=== PATIENT | female | born 1960 | race American Indian/Alaskan Native ===

== ENCOUNTER 2016-11-16 09:19 | Emergency (ER) | payer OTHER, MEDICARE ==
[2016-11-16 10:11] VITALS: BP 130/93
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
== END 2016-11-16 12:25 | disposition home or self-care (01) ==
LOC: ED 09:19
DX: M79.1 Myalgia (principal); M54.6 Pain in thoracic spine; M25.512 Pain in left shoulder; I10 Essential (primary) hypertension; Z72.0 Tobacco use; Z98.890 Other specified postprocedural states; V89.2XXA Person injured in unspecified motor-vehicle accident, traffic, initial encounter; Y93.9 Activity, unspecified; Y99.9 Unspecified external cause status; Y92.410 Unspecified street and highway as the place of occurrence of the external cause
CPT/HCPCS: 99282

== ENCOUNTER 2020-08-10 18:33 | Emergency (ER) | payer MEDICARE ==
[2020-08-10 18:52] VITALS: BP 109/72
[2020-08-10 19:53] LABS: Basophils % (Auto) 0.8 % (0.0-1.8); Eosinophils # (Auto) 0.1 K/mm3 (0.0-0.4); Eosinophils % (Auto) 1.2 % (0.0-4.3); Hematocrit 35.4 % (30.3-42.9); Hemoglobin 11.9 gm/dl (10.1-14.3); Lymphocytes # (Auto) 2.5 K/mm3 (1.2-5.4); Lymphocytes % (Auto) 52.5 % (13.4-35.0); Mean Corpuscular HGB Conc 34 % (30-34); Mean Corpuscular Volume 85 fl (79-97); Monocytes # (Auto) 0.4 K/mm3 (0.0-0.8); Monocytes % (Auto) 8.3 % (0.0-7.3); Platelet Count 188 K/mm3 (140-440); Red Blood Count 4.15 M/mm3 (3.65-5.03); Red Cell Distribution Width 14.4 % (13.2-15.2)
[2020-08-10] MEDS ORDERED: ACETAMINOPHEN 325 MG TAB ONE (20:00)
[2020-08-10] MEDS ORDERED: ACETAMINOPHEN 325 MG TAB PO ONE (20:01)
[2020-08-10 20:08] LABS: Alanine Aminotransferase 10 units/L (7-56); Albumin 4.2 g/dL (3.9-5); Blood Urea Nitrogen 10 mg/dL (7-17); Calcium 9.4 mg/dL (8.4-10.2); Hemolysis Index 4
[2020-08-10 20:11] LABS: BUN/Creatinine Ratio 17
[2020-08-10 20:26] LABS: Bacteria,Urine 1+ /HPF (Negative); Bilirubin,Urine NEG (Negative); Blood,Urine NEG (Negative); Color,Urine Yellow (Yellow); Mucus,Urine FEW /HPF; Protein,Urine <15 mg/dL mg/dL (Negative); Urobilinogen,Urine < 2.0 mg/dL (<2.0)
--- NOTE | 2020-08-10 20:37 | XRay Report ---
PELVIS HISTORY: Pelvic pain 3 months COMPARISON: None. TECHNIQUE: AP radiograph(s) of the pelvis obtained. FINDINGS: Bones: No fracture or dislocation. Joint spaces: Maintained. Soft Tissues: No significant abnormality. Additional findings: Degenerative changes lower lumbar spine with fusion L5-S1 IMPRESSION: 1. No acute abnormality. Signer Name: Ty Cason MD Signed: 08/10/2020 8:33 PM Workstation Name: [id number]
--- NOTE | 2020-08-10 20:55 | Emergency Department Report ---
ED General Adult HPI - General Chief complaint: Urogenital-Female Stated complaint: VAGINAL PAIN Source: patient Mode of arrival: Ambulatory Limitations: No Limitations - History of Present Illness Initial comments: Patient is a 60 yo AA female with a h/o HTN and NIDDM as well as chronic osteoarthritis who presents to the ED with c/o acute onset persistent severe nontraumatic hip, pelvic and low back pain with hip pain for the last 5 days, worse with any movement or at rest. Patient states that she has been taklng OTC medications with no reliefe. Patient denies fall, traumatic injury, dysuria, hematuria, abdominal pain, dizziness, fever and chills, vaginal bleeding, heavy lifting and numbness and tingling of lower extremities bilaterally. MD Complaint: Pelvic pain, low back pain -: Sudden, days(s) (5) Location: pelvis Radiation: non-radiation Severity scale (0 -10): 10 Quality: aching, sharp Consistency: constant Improves with: none Associated Symptoms: denies other symptoms. denies: confusion, chest pain, cough, diaphoresis, headaches, loss of appetite, malaise, nausea/vomiting, seizure, shortness of breath, syncope, other Treatments Prior to Arrival: none - Related Data Home Medications Medication Instructions Recorded Confirmed Last Taken hydroCHLOROthiazide [Hctz] 25 mg PO QDAY 05/13/13 06/12/13 Unknown Cyclobenzaprine HCl 10 mg PO TID 06/12/13 06/12/13 Unknown [Cyclobenzaprine] Previous Rx's Medication Instructions Recorded Last Taken Type Ciprofloxacin HCl [Cipro] 500 mg PO BID #14 tablet 06/13/13 Unknown Rx Promethazine [Phenergan] 25 mg PO Q6H PRN #10 tablet 06/13/13 Unknown Rx metroNIDAZOLE [Flagyl] 500 mg PO Q8HR #14 tablet 06/13/13 Unknown Rx oxyCODONE /ACETAMINOPHEN [Percocet 1 tab PO Q6HR PRN #10 tablet 06/13/13 Unknown Rx 5/325 mg] Albuterol Mdi (or & Nicu Only) 2 puff IH QID PRN #1 inhalation 12/19/14 Unknown Rx [ProAir HFA Inhaler] Amoxicillin/K Clav Tab [Augmentin 1 tab PO Q12HR #20 tab 12/19/14 Unknown Rx 875MG TAB] Codeine Phosphate/Guaifenesin 10 ml PO QHS #70 ml 12/19/14 Unknown Rx [guaiFENesin-Codeine Syrup] methylPREDNISolone [Medrol Dose 4 mg PO QAM #1 pack 12/19/14 Unknown Rx Lacho] Cyclobenzaprine [Flexeril] 10 mg PO QHS PRN #24 tablet 11/16/16 Unknown Rx Naproxen [Naprosyn TAB] 500 mg PO BID #30 tablet 08/10/20 Unknown Rx predniSONE [Deltasone] 40 mg PO QDAY #10 tab 08/10/20 Unknown Rx traMADoL [Ultram] 50 mg PO Q6HR PRN #12 tablet 08/10/20 Unknown Rx Allergies Allergy/AdvReac Type Severity Reaction Status Date / Time No Known Allergies Allergy Verified 08/10/20 18:49 ED Review of Systems ROS: Stated complaint: VAGINAL PAIN Other details as noted in HPI Constitutional: denies: chills, fever Eyes: denies: eye pain, eye discharge, vision change ENT: denies: ear pain, throat pain Respiratory: denies: cough, shortness of breath, wheezing Cardiovascular: denies: chest pain, palpitations Endocrine: no symptoms reported Gastrointestinal: denies: abdominal pain, nausea, diarrhea Genitourinary: denies: urgency, dysuria, discharge Musculoskeletal: arthralgia (pelvic pain, low back pain), other (bilateral hip pain). denies: back pain, joint swelling Skin: denies: rash, lesions Neurological: denies: headache, weakness, paresthesias Psychiatric: denies: anxiety, depression Hematological/Lymphatic: denies: easy bleeding, easy bruising ED Past Medical Hx - Past Medical History Hx Hypertension: Yes Hx Diabetes: Yes - Surgical History Hx Cholecystectomy: Yes Additional Surgical History: back surgery jun, KNEE - Social History Smoking Status: Never Smoker Substance Use Type: None - Medications Home Medications: Home Medications Medication Instructions Recorded Confirmed Last Taken Type hydroCHLOROthiazide [Hctz] 25 mg PO QDAY 05/13/13 06/12/13 Unknown History Cyclobenzaprine HCl 10 mg PO TID 06/12/13 06/12/13 Unknown History [Cyclobenzaprine] Ciprofloxacin HCl [Cipro] 500 mg PO BID #14 tablet 06/13/13 Unknown Rx Promethazine [Phenergan] 25 mg PO Q6H PRN #10 tablet 06/13/13 Unknown Rx metroNIDAZOLE [Flagyl] 500 mg PO Q8HR #14 tablet 06/13/13 Unknown Rx oxyCODONE /ACETAMINOPHEN [Percocet 1 tab PO Q6HR PRN #10 tablet 06/13/13 Unknown Rx 5/325 mg] Albuterol Mdi (or & Nicu Only) 2 puff IH QID PRN #1 inhalation 12/19/14 Unknown Rx [ProAir HFA Inhaler] Amoxicillin/K Clav Tab [Augmentin 1 tab PO Q12HR #20 tab 12/19/14 Unknown Rx 875MG TAB] Codeine Phosphate/Guaifenesin 10 ml PO QHS #70 ml 12/19/14 Unknown Rx [guaiFENesin-Codeine Syrup] methylPREDNISolone [Medrol Dose 4 mg PO QAM #1 pack 12/19/14 Unknown Rx Lacho] Cyclobenzaprine [Flexeril] 10 mg PO QHS PRN #24 tablet 11/16/16 Unknown Rx Naproxen [Naprosyn TAB] 500 mg PO BID #30 tablet 08/10/20 Unknown Rx predniSONE [Deltasone] 40 mg PO QDAY #10 tab 08/10/20 Unknown Rx traMADoL [Ultram] 50 mg PO Q6HR PRN #12 tablet 08/10/20 Unknown Rx ED Physical Exam - General Limitations: No Limitations General appearance: alert, in no apparent distress - Head Head exam: Present: atraumatic, normocephalic, normal inspection - Eye Eye exam: Present: normal appearance, PERRL, EOMI Pupils: Present: normal accommodation - ENT ENT exam: Present: normal exam, normal orophraynx, mucous membranes moist, TM's normal bilaterally, normal external ear exam - Neck Neck exam: Present: normal inspection, full ROM. Absent: tenderness, meningismus - Respiratory Respiratory exam: Present: normal lung sounds bilaterally. Absent: respiratory distress, wheezes, rales, rhonchi, stridor, chest wall tenderness, accessory muscle use, prolonged expiratory - Cardiovascular Cardiovascular Exam: Present: regular rate, normal rhythm, normal heart sounds. Absent: systolic murmur, diastolic murmur, rubs, gallop - GI/Abdominal GI/Abdominal exam: Present: soft, normal bowel sounds. Absent: tenderness, guarding, rigid, hyperactive bowel sounds, hypoactive bowel sounds, organomegaly - Extremities Exam Extremities exam: Present: normal inspection, full ROM, tenderness (Palpable hip and pelvis pain), normal capillary refill - Back Exam Back exam: Present: normal inspection, full ROM, muscle spasm, paraspinal tenderness. Absent: tenderness, CVA tenderness (R), CVA tenderness (L), vertebral tenderness - Neurological Exam Neurological exam: Present: alert, oriented X3, CN II-XII intact, normal gait, reflexes normal - Psychiatric Psychiatric exam: Present: normal affect, normal mood - Skin Skin exam: Present: warm, dry, intact, normal color. Absent: rash ED Course Vital Signs 08/10/20 08/10/20 18:51 20:05 Temperature 97.7 F Pulse Rate 61 Respiratory 18 18 Rate Blood Pressure 109/72 O2 Sat by Pulse 99 Oximetry ED Medical Decision Making - Lab Data Result diagrams: 08/10/20 19:44 08/10/20 19:44 - Radiology Data Radiology results: report reviewed, [place] [address] XRay Report Signed Patient: ADAN BUENROSTRO MR#: [id number] : 1960 Acct:[id number] Age/Sex: 60 / F ADM Date: 08/10/20 Loc: ED Attending Dr: Ordering Physician: TARAN KONG Date of Service: 08/10/20 Procedure(s): XR pelvis 1-2V Accession Number(s): [id number] cc: TARAN KONG Fluoro Time In Minutes: PELVIS HISTORY: Pelvic pain 3 months COMPARISON: None. TECHNIQUE: AP radiograph(s) of the pelvis obtained. FINDINGS: Bones: No fracture or dislocation. Joint spaces: Maintained. Soft Tissues: No significant abnormality. Additional findings: Degenerative changes lower lumbar spine with fusion L5-S1 IMPRESSION: 1. No acute abnormality. Signer Name: Ty Cason MD Signed: 08/10/2020 8:33 PM Workstation Name: [id number] Transcribed By: TL Dictated By: Ty Cason MD Electronically Authenticated By: Ty Cason MD Signed Date/Time: 08/10/202032 DD/ 31 TD/TT: Print Cancel - Medical Decision Making This is a 60 yo AA female with a h/o HTN and NIDDM as well as chronic osteoarthritis who presents to the ED with c/o acute onset persistent severe nontraumatic hip, pelvic and low back pain with hip pain for the last 5 days, worse with any movement or at rest. Patient states that she has been taklng OTC medications with no relief. In the ED, patient is alert and oriented x 3 and is in no acute distress. Lab test results were reviewed and are all nonactionable. Patient was treated for pain. Hip x-ray shows no acute fractures or subluxations but lumbar disc disease and fusion. Patient was therefore discharged home on pain medications and advised to follow up with her primary care physician in 7- 10 days for reevaluation or return to the ED immediately if symptoms get worse - Differential Diagnosis Osteoarthritis; Hip bursitis; Tendonitis; Muscle strain Critical care attestation.: If time is entered above; I have spent that time in minutes in the direct care of this critically ill patient, excluding procedure time. ED Disposition Clinical Impression: Strain of muscle of hip, Chronic osteoarthritis Bilateral hip bursitis Qualifiers: Hip bursitis location: unspecified Qualified Code(s): M70.71 - Other bursitis of hip, right hip Disposition: - TO HOME OR SELFCARE Is pt being admited?: No Does the pt Need Aspirin: No Condition: Stable Instructions: Hip Bursitis, Ppcw-[id number]-[id number], Bursitis, [id number], Muscle Strain, [id number] Additional Instructions: All lab test results are nonactionable. Hip x-ray shows no acute fractures or subluxations. Prescriptions: predniSONE [Deltasone] 40 mg PO QDAY #10 tab Naproxen [Naprosyn TAB] 500 mg PO BID #30 tablet traMADoL [Ultram] 50 mg PO Q6HR PRN #12 tablet PRN Reason: Pain Referrals: [facility] [Provider Group] - 3-5 Days Time of Disposition: 21:04 Print Language: ALBANIAN
== END 2020-08-10 21:22 | disposition home or self-care (01) ==
LOC: ED 18:33
DX: S76.012A Strain of muscle, fascia and tendon of left hip, initial encounter (principal); S76.011A Strain of muscle, fascia and tendon of right hip, initial encounter; M16.0 Bilateral primary osteoarthritis of hip; M70.72 Other bursitis of hip, left hip; M70.71 Other bursitis of hip, right hip; I10 Essential (primary) hypertension; E11.9 Type 2 diabetes mellitus without complications; Z79.899 Other long term (current) drug therapy; X58.XXXA Exposure to other specified factors, initial encounter; Y93.89 Activity, other specified; Y92.89 Other specified places as the place of occurrence of the external cause; Y99.8 Other external cause status
CPT/HCPCS: 36415; 72170; 80053; 81001; 85025; 99283